=== PATIENT | female | born 1965 | race Two or more races ===

== ENCOUNTER → 2024-10-28 | Emergency (ER) | payer OTHER ==
[~2024-10-28] VITALS: Ht 162.6 cm; Wt 65.8 kg
[~2024-10-28] MED LIST: ATORVASTATIN CA10 MG PO; KETOROLAC TROMETHAMINE 60 MG VIAL IM ONE; RISEDRONATE SOD35 MG PO
== END | disposition home or self-care (01) ==
LOC: ER 07:05
DX: S52.92XA Unspecified fracture of left forearm, initial encounter for closed fracture (principal); W18.39XA Other fall on same level, initial encounter; Y93.89 Activity, other specified; Y92.89 Other specified places as the place of occurrence of the external cause; Y99.9 Unspecified external cause status; Z88.8 Allergy status to other drugs, medicaments and biological substances